=== PATIENT | male | born 2000 | race Caucasian/White ===

== ENCOUNTER 2024-04-17 18:27 | Emergency (ER) | payer OTHER ==
[2024-04-17] MEDS: Dextrose 5%-0.9% NaCl 1,000 ML IV SCH (19:16)
[2024-04-17 19:25] LABS: BASOPHILS PERCENT AUTO 0.3 % (0.0-1.0); EOSINOPHILS ABSOLUTE AUTO 0.1 K/mm3 (0.0-0.4); EOSINOPHILS PERCENT AUTO 0.6 % (0.0-6.0); HEMATOCRIT 40.4 % (42.0-52.0); HEMOGLOBIN 13.8 gm/dl (14.0-18.0); IMMATURE GRAN ABSOLUTE AUTO 0.02 K/mm3 (0.00-0.05); IMMATURE GRAN PERCENT AUTO 0.2 % (0.0-0.4); LYMPHOCYTES ABSOLUTE AUTO 2.5 K/mm3 (1.0-4.8); LYMPHOCYTES PERCENT AUTO 24.4 % (24.0-44.0); MEAN CORPUSCULAR HEMOGLOBIN 30.9 pg (28.0-32.0); MEAN CORPUSCULAR HGB CONC 34.2 g/dl (32.0-36.0); MEAN CORPUSCULAR VOLUME 90.6 fl (83.0-99.0); MEAN PLATELET VOLUME 9.3 fl (9.4-12.4); MONOCYTES ABSOLUTE AUTO 0.8 K/mm3 (0.0-0.8); MONOCYTES PERCENT AUTO 7.8 % (0.0-8.0); NEUTROPHILS ABSOLUTE AUTO 6.9 K/mm3 (1.8-7.7); NEUTROPHILS PERCENT AUTO 66.7 % (41.0-71.0); PLATELET COUNT,PLT 237 K/mm3 (150-400); RED BLOOD CELL COUNT 4.46 M/mm3 (4.52-5.90); WHITE BLOOD CELL COUNT,WBC 10.29 K/mm3 (3.9-11.3)
[2024-04-17] MEDS ORDERED: Ondansetron 4 MG Tab.DIS PO ONE (19:30)
[2024-04-17] MEDS: Famotidine 20 MG/2 ML SDV IVPUSH ONE (19:34)
[2024-04-17] MEDS: Pantoprazole 40 MG Vial IVPUSH ONE (19:34)
[2024-04-17] MEDS: Ondansetron 4 MG/2 ML SDV IVPUSH ONE (19:37)
[2024-04-17 19:44] LABS: INR 1.03; PROTHROMBIN TIME 10.9 SECONDS (9.7-12.0)
[2024-04-17 19:45] LABS: PTT,PARTIAL THROMBOPLSTIN TIME 25.6 SECONDS (21.7-31.4)
[2024-04-17 19:50] LABS: A/G RATIO 1.4 (1-2); ALBUMIN 4.3 g/dl (3.4-5.0); ANION GAP 16.5 (5-15); BILIRUBIN TOTAL 0.4 mg/dL (0.2-1.0); BUN/CREATININE RATIO 19.2 (14-18); C-REACTIVE PROTEIN 0.12 mg/dL (<0.30); CALCIUM 9.6 mg/dL (8.5-10.1); CREATININE 1.2 mg/dL (0.7-1.3); EST CRCL DRUG DOSING (CG) 95.71 mL/min; MAGNESIUM 2.1 mg/dL (1.8-2.4); POTASSIUM,K 4.5 mEq/L (3.5-5.1); PROTEIN TOTAL,TP 7.4 g/dl (6.4-8.2)
[2024-04-17 19:52] LABS: LACTIC ACID 1.3 mmol/L (0.4-2.0)
== END 2024-04-17 20:40 | disposition home or self-care (01) ==
LOC: JD.ED 18:27
DX: K29.01 Acute gastritis with bleeding (principal)
CPT/HCPCS: 36415; 80053; 80307; 83605; 83690; 83735; 85025; 85610; 85730; 86140; 96361; 96374; 96375; 99284; J2470; J3490; J7042